=== PATIENT | female | born 1975 | race Hispanic/Latino ===

== ENCOUNTER 2018-10-27 10:38 | Day surgery (SDC) | payer MEDICAID, SELFPAY ==
[2018-10-27 11:25] VITALS: BMI 28.5
--- NOTE | 2018-10-27 14:29 | ULT ---
LIMITED OB ULTRASOUND AND BIOPHYSICAL PROFILE: HISTORY: Gestational diabetes mellitus. High risk for trisomy. FINDINGS/ IMPRESSION: Cervical length 4.8 cm. heart rate 147 beats per minute. Single intrauterine fetus, in cephal ic presentation. Fundal posterior placenta. Marked bilateral renal hydronephrosis. The visua lized bladder and diaphragm are unremarkable. No measurements were performed to evaluate for gestational age. Marked bilateral renal hydronephrosis. BIOPHYSICAL PROFILE: The patient was examined over 30 minutes for movement, tone, breathing movements, a nd amniotic fluid. No breathing movements were demonstrated. biophysical profile score equals 6/8. The nuclear medicine chief technologist gave these results to the nurse (Rox), taking care of the patient. POS: [facility]
== END 2018-10-27 13:25 | disposition home health service (06) ==
LOC: L&D/OP 10:38
PROVIDERS: ATTEND Family Medicine
DX: O36.8330 Maternal care for abnormalities of the fetal heart rate or rhythm, third trimester, not applicable or unspecified (principal); O09.523 Supervision of elderly multigravida, third trimester; O99.89 Other specified diseases and conditions complicating pregnancy, childbirth and the puerperium; N13.30 Unspecified hydronephrosis; O24.410 Gestational diabetes mellitus in pregnancy, diet controlled; Z3A.37 37 weeks gestation of pregnancy
CPT/HCPCS: 76819; 99282

== ENCOUNTER 2018-10-30 18:04 | Inpatient (IN) | payer SELFPAY ==
[2018-10-30 18:30] VITALS: BMI 28.3
[2018-10-30] MEDS ORDERED: Promethazine HCl 25 MG/ML VIAL IM PRN ×2 (18:40→22:35)
[2018-10-30] MEDS ORDERED: Butorphanol Tartrate 1 MG/ML VIAL SLOW IVP PRN (18:40)
[2018-10-30] MEDS ORDERED: NS / Oxytocin 40 units/1000ml 1,000 ML IV PRN (18:40)
[2018-10-30] MEDS ORDERED: Lidocaine 1% (PF) 30 ML VIAL SC PRN (18:40)
[2018-10-30] MEDS ORDERED: Ibuprofen 800 MG TAB PO PRN (18:40)
[2018-10-30] MEDS ORDERED: Acetaminophen 500 MG TAB PO PRN (18:40)
[2018-10-30] MEDS ORDERED: Docusate 100 MG CAP PO PRN (18:40)
[2018-10-30] MEDS ORDERED: Ondansetron PF 4 MG/2 ML Vial IVP PRN ×2 (18:40→22:35)
[2018-10-30] MEDS ORDERED: Lactated Ringer's 1,000 ML IV SCH (18:45)
[2018-10-30 18:57] LABS: Mean Corpuscular Volume 97.2 fL (78.0-98.0); Mean Platelet Volume 9.4 fL (7.4-10.4); Platelet Count 206 thou/uL (130-400); RBC Distribution Width 11.9 % (11.5-14.5); Red Blood Cell (RBC) Count 3.93 mill/uL (4.20-5.40); White Blood Cell (WBC) Count 10.4 thou/uL (4.8-10.8)
[2018-10-30] MEDS ORDERED: NS / Oxytocin 40 units/1000ml 1,000 ML ONE (19:22)
[2018-10-30] MEDS ORDERED: Lidocaine 1% (PF) 30 ML VIAL ONE (19:22)
[2018-10-30 19:38] LABS: HBSAg Index 0.43 S/CO (0-0.99); Hep B Surf Ag Non-Reactive S/CO (NonReactive); Syphilis Antibody Nonreactive (Nonreactive); Syphilis Antibody Index 0.03 S/CO (<1.00 Non-Reactive)
[2018-10-30 19:55] LABS: Glucose 80 mg/dL (70-105)
--- NOTE | 2018-10-30 19:57 | PDOC.LDPN ---
Labor & Delivery Progress Note - Subjective Subjective: painful contractions - Objective Vital signs reviewed and normal: yes General: NAD, breathing through contractions Uterine fundus: non tender Dilation: 6 Effacement: 100% Station: 0 FHT: category 1 [place] contractions every: 5-6 mins AROM: clear fluid Plan: continue plan of care
[2018-10-30] MEDS ORDERED: NS w/ Oxytocin 10 units 500 ML IV SCH ×2 (20:15)
[2018-10-30] MEDS ORDERED: HYDROcodone/Acetaminophen 5/325 mg Tablet PO PRN ×2 (22:35)
[2018-10-30] MEDS ORDERED: NS / Oxytocin 40 units/1000ml 1,000 ML IV SCH (22:35)
[2018-10-30] MEDS ORDERED: Lanolin Ointment 7 GM TUBE TOP PRN (22:35)
[2018-10-30] MEDS ORDERED: Benzocaine-Menthol 82.5 ML CAN TOP PRN (22:35)
[2018-10-30] MEDS ORDERED: Bisacodyl 10 MG SUPP PR PRN (22:35)
[2018-10-30] MEDS ORDERED: Milk Of Magnesia 30 ML UDCUP PO PRN (22:35)
[2018-10-30] MEDS ORDERED: diphenhydrAMINE 25 MG CAP PO PRN (22:35)
[2018-10-31] MEDS: Ibuprofen 800 MG TAB PO SCH ×3 (00:41→14:05)
[2018-10-31] MEDS: Ferrous Sulfate 325 MG TAB PO SCH ×2 (07:57→16:28)
[2018-10-31] MEDS ORDERED: Docusate Calcium (SURFAK) 240 MG CAP PO SCH (09:00)
[2018-10-31] MEDS ORDERED: Prenatal Vitamin 1 TAB PO SCH (09:00)
[2018-10-31 19:59] VITALS: BP 93/50; TEMP 97.9
== END 2018-10-31 20:05 | disposition home or self-care (01) | DRG 807 ==
LOC: L&D/OP 18:04 → L&D 18:56 → 3SW 23:39
PROVIDERS: ADMIT Family Medicine; ATTEND Family Medicine
PROC: 10E0XZZ Delivery of Products of Conception, External Approach (ICD-10-PCS; principal; 2018-10-30)
PROC: 0KQM0ZZ Repair Perineum Muscle, Open Approach (ICD-10-PCS; 2018-10-30)
PROC: 10907ZC Drainage of Amniotic Fluid, Therapeutic from Products of Conception, Via Natural or Artificial Opening (ICD-10-PCS; 2018-10-30)
DX: O24.420 Gestational diabetes mellitus in childbirth, diet controlled (principal); Z37.0 Single live birth; Z3A.37 37 weeks gestation of pregnancy; O36.5930 Maternal care for other known or suspected poor fetal growth, third trimester, not applicable or unspecified; O69.81X0 Labor and delivery complicated by cord around neck, without compression, not applicable or unspecified; O35.1XX0 Maternal care for (suspected) chromosomal abnormality in fetus, not applicable or unspecified; O70.1 Second degree perineal laceration during delivery
CPT/HCPCS: 36415; 82947; 85027; 86780; 86850; 86900; 86901; 87340; 99285; J0595; J2001